=== PATIENT | female | born 1975 | race Caucasian/White ===

== ENCOUNTER → 2017-03-08 | Outpatient (CLI) | payer OTHER ==
[~2017-03-08] MED LIST: LEXAPRO 10MG10 MG PO; MOTRIN 800800 MG/TAB PO; NORCO 325 MG-51 TAB PO; PRENATAL VITAMI1 TA5 PO; PRENATAL1 TA1 PO; SENOKOT S 50 MG1 TAB PO; VALTREX
== END ==
LOC: MC.RAD 12:01
DX: Z12.31 Encounter for screening mammogram for malignant neoplasm of breast (principal)

== ENCOUNTER → 2018-04-15 | Outpatient (CLI) | payer OTHER | LOC: MC.RAD 09:37 | DX: Z12.31 Encounter for screening mammogram for malignant neoplasm of breast (principal) ==

== ENCOUNTER → 2019-04-16 | Outpatient (CLI) | payer OTHER | LOC: MC.RAD 09:30 | DX: Z12.31 Encounter for screening mammogram for malignant neoplasm of breast (principal) ==